=== PATIENT | female | born 1995 | race Caucasian/White ===

== ENCOUNTER 2017-07-13 21:51 | Emergency (ER) | payer SELFPAY ==
[~2017-07-13] VITALS: Ht 162.6 cm; Wt 166.0 kg
[2017-07-13 21:56] VITALS: BP 143/82; PULSE 91; RESP 16; O2SAT 100
[2017-07-13 22:27] LABS: BASOPHILS % (AUTO) 0.8 % (0-3); EOSINOPHILS % (AUTO) 1.9 % (0-5); Mean Corpuscular Hemoglobin 28.5 pg (27.0-35.0); NEUTROPHILS % (AUTO) 53.1 % (40-74); Platelet Count 334 bil/L (150-400)
[2017-07-13 22:47] LABS: Magnesium 2.1 mg/dL (1.6-2.6)
--- NOTE | 2017-07-13 23:17 | ED.REPORT ---
HPI-Abd Pain F Under 38 Date of Service Jul 13, 2017 ED Provider: Jacob Oro MD The pt is a 21 y/o female with no pertinent hx who presents to the ED complaining of diffuse abdominal pain, onset a few days ago. Associated sx include constipation and nausea. Her last BM was this morning. She denies hematochezia and . The pt also reports that in Feb, 2017 she was told her CA 19-9 was elevated for colon cancer but there was no follow up. Nursing Notes Stated Complaint: ABDOMINAL PAIN Chief Complaint: Female Abdominal Pain Nursing Notes Reviewed: Yes Allergies: Coded Allergies: ibuprofen (Verified Allergy, Intermediate, hives, 07/13/17) General Time Seen by MD: 23:14 Chief Complaint Abdominal pain Hx Obtained From: Patient Arrived By: Walk-in Sudden in Onset?: No Onset Occurred: 3 days ago Symptom Duration: Since onset Location: : Diffuse Quality: Painful Radiation: : Does not radiate Severity: Current: Moderate Severity: Maximum: Moderate Recent Healthcare: No recent doctor visit Past Medical History Past Medical History none reported Past Surgical History none reported Smoking History Unknown if Ever Smoker Social History Other Social History: Good social support Ambulatory Status Independent Review of Systems GI: Reports: Abdominal pain, Constipation, Nausea, Denies: Hematochezia Female: Denies: Complete sys rev & neg: except as marked. Physical Exam Initial Vital Signs Vital Signs (First) Date Time Temp Pulse Resp B/P Pulse Ox O2 Delivery O2 Flow Rate FiO2 07/13/17 21:56 37.1 91 16 143/82 100 Room Air Initial VS: Reviewed, Vital signs abnormal Head / Eyes: Atraumatic, Normocephalic Neck: Supple, Non-tender, Full range of motion Extremities: Vascular intact, Neuro intact, No swelling, No tenderness Skin: Warm, Dry, No cyanosis Neurologic: Alert, Oriented, Nonfocal General/Constitutional: Awake, Alert, No acute distress, Well appearing, Cooperative Respiratory / Chest: Atraumatic, Breath sounds NL, Breath sounds = bilat, No respiratory distress, No rales, No rhonchi, No wheezing Cardiovascular: Heart rate NL, Regular rhythm, Heart sounds NL, No gallop, No murmurs, No rubs Abdomen: Atraumatic, Soft, No guarding, No rebound Tenderness/Guarding/Rebound: Positive: Tender diffuse (worse on the left side) Back: Atraumatic, Full range of motion, Painless range of motion Interpretation & Diagnostics Lab Results Interpretation Result Diagram: 07/13/17 2223 07/13/17 2223 Test 07/13/17 22:23 07/13/17 22:24 07/13/17 23:50 White Blood Count 10.4th/mm3 (3.8-10.1) Red Blood Count 4.94mil/mm3 (3.90-5.20) Hemoglobin 14.1g/dL (12.0-15.6) Hematocrit 40.5% (35.0-46.0) Mean Corpuscular Volume 82.0fL (81-100) Mean Corpuscular Hemoglobin 28.5pg (27.0-35.0) Mean Corpuscular Hemoglobin Concent 34.8% (32.0-37.0) Red Cell Distribution Width 13.1% (12.3-15.4) Platelet Count 334bil/L (150-400) Neutrophils (%) (Auto) 53.1% (40-74) Lymphocytes (%) (Auto) 35.0% (14-46) Monocytes (%) (Auto) 9.0% (4-12) Eosinophils (%) (Auto) 1.9% (0-5) Basophils (%) (Auto) 0.8% (0-3) Sodium Level 138mEq/L (134-144) Potassium Level 3.7mEq/L (3.5-5.2) Chloride Level 99mEq/L (97-108) Carbon Dioxide Level 24mmol/L (18-29) Blood Urea Nitrogen 13mg/dL (6-20) Creatinine 0.71mg/dL (0.57-1.00) Estimat Glomerular Filtration Rate 146mL/min (>59) Glucose Level 97mg/dL (60-99) Calcium Level 9.3mg/dL (8.5-10.1) Magnesium Level 2.1mg/dL (1.6-2.6) Total Bilirubin 0.2mg/dL (0.0-1.2) Aspartate Amino Transf (AST/SGOT) 19U/L (0-50) Alanine Aminotransferase (ALT/SGPT) 23U/L (0-32) Alkaline Phosphatase 50U/L (25-150) Total Protein 8.0g/dL (6.4-8.4) Albumin 4.5g/dL (3.4-5.0) Lipase 35U/L (13-60) Hold Donal[place]on Top Tube Received (Received) Urine Color Straw (YELLOW) Urine Appearance Clear (CLEAR,HAZY) Urine pH 6.5 (5.0-8.0) Urine Specific [place] <1.005 (1.003-1.035) Urine Protein Negativemg/dL (NEG,TRACE) Urine Glucose (UA) Negativemg/dL (NEGATIVE) Urine Ketones Negativemg/dL (NEGATIVE) Urine Occult Blood Negative (NEGATIVE) Urine Nitrite Negative (NEGATIVE) Urine Bilirubin Negative (NEGATIVE) Urine Urobilinogen Normalmg/dL (NORMAL) Urine Leukocyte Esterase Negative (NEGATIVE) Urine RBC 0-2/hpf (0-2) Urine WBC 0-5/hpf (0-5) Urine Epithelial Cells Few/hpf (NONE-MOD) Urine Crystals None seen (NONE SEEN) Urine Bacteria Few/hpf (NONE-FEW) Urine Hyaline Casts None/lpf (NONE) Urine Granular Casts None seen (NONE SEEN) Urine Waxy Casts None seen (NONE SEEN) Urine Red Blood Cell Casts None seen (NONE SEEN) Urine White Blood Cell Casts None seen (NONE SEEN) Urine Mucus None seen (None Seen) Urine Trichomonas None seen (NONE SEEN) Urine Yeast None (NONE SEEN) Urinalysis Comment None Urine Culture Reflexed Not indicated Lab values outside NL range: no clinical significance. X-Ray Abdominal Interpretation Diffuse excessive stool throughout the colon. Interpretation / Wet Read by: Wet read ED physician Re-Eval/Medical Decision Med Decision/Clinical Course 21-year-old female who has vague symptoms of ongoing abdominal pain and nausea. She has a long history of constipation with laxative use. She was told several months ago at urgent care that she had an elevated colon cancer blood test but this was never followed up. Three-view abdomen does show that she has excessive stool in her colon but no other abnormalities. She is encouraged to not use stimulant type laxatives but to clear the colon with MiraLAX and follow that with vegetable fiber laxatives. She is to follow-up as soon as possible with the residency clinic to establish primary care and complete the workup. Re-Evaluation/Progress : Time of Eval: 00:46 Patient Status: Condition improved Re-Evaluation/Progress Note: Rechecked pt. Discussed lab results, imaging results, diagnosis and plan to discharge. She reports that in Feb, 2017 she was told her CA 19-9 was elevated for colon cancer but there was no follow up. Pt understands and agrees with the plan. F/U instruction and RTER warning given. All questions addressed. Counseled Regarding: Diagnosis, Lab results, Need for follow-up, When/why to return to ED Discharge & Departure Primary Impression: Abdominal pain Abdominal location: left lower quadrant Qualified Code: R10.32 - Left lower quadrant pain Additional Impression: Constipation Constipation type: unspecified constipation type Qualified Code: K59.00 - Constipation, unspecified Disposition: Home Discharge Condition All VS Reviewed: Yes Condition: Stable Patient Instructions: Constipation (ED), High Fiber Diet (ED) Additional Instructions: Recommend MiraLAX 17 g with 8 ounces of liquid several times daily until your bowel movements become softer and more regular. Recommend vegetable fiber laxative (Citrucel, Metamucil, others) to maintain a softer stool. Follow-up with the resident clinic to evaluate the previous positive "colon cancer test." You will likely need further evaluation to include repeat testing , colonoscopy, and CT scan. Referrals: Mat Alfonso Attestation Portions of this note were transcribed by Mary Jane Wright. I,, personally performed the history,physical exam and medical decision-making;I reviewed and confirmed the accuracy of the information in the transcribed note. Signed by Cristian Leggett. 07/13/17 copies to: Mat Alfonso Howard L MD Jul 13, 2017 23:17 Mary Jane Wright Jul 13, 2017 23:28
[2017-07-13] MEDS ORDERED: HYDROcodone-APAP 5-325 mg Tablet PO ONE (23:25)
[2017-07-14 00:34] LABS: APPEARANCE,URINE CLEAR (CLEAR,HAZY); COLOR,URINE STRAW (YELLOW); OCCULT BLOOD,URINE NEGATIVE (NEGATIVE); PH,URINE 6.5 (5.0-8.0); UROBILINOGEN,URINE NORMAL (NORMAL)
[2017-07-14 01:46] VITALS: BP 118/81; PULSE 71; RESP 18; O2SAT 100
--- NOTE | 2017-07-14 11:12 | DRSVH ---
PROCEDURE: X-RAY ACUTE ABDOMINAL SERIES ([id number]) INDICATIONS: abd pain, constipation TECHNIQUE: One view chest and two views of the abdomen were acquired. COMPARISON: None. FINDINGS: Surgical changes and devices: None. Chest: Lungs volumes are low and bibasilar airspace opacities are present. Heart size is normal. N o pleural effusions. No pneumoperitoneum. Abdomen: Bowel gas pattern is normal. 2.6 cm pelvic calcification. Visualized solid organ contours appear normal. Bones: No suspicious bony lesions. IMPRESSION: 1. Bibasilar atelectasis versus less likely aspiration or pneumonia. Correlate clinically. 2. Normal bowel gas pattern. 3. 2.6 cm right pelvic calcification present slightly to right of midline. Calcification is unable t o be further localized and if indicated CT KUB could be performed for further localization and assess ment. Dictated by: Prashanth Lai [facility] Interpreted: Nohemy Chaudhary MD on 07/14/2017 at 9:04 Approved by: Nohemy Chaudhary MD, PhD on 07/14/2017 at 11:10
== END 2017-07-14 01:35 | disposition home or self-care (01) ==
LOC: SED 21:51
DX: K59.00 Constipation, unspecified (principal); R11.0 Nausea; Z88.6 Allergy status to analgesic agent